=== PATIENT | female | born 1985 | race Caucasian/White ===

== ENCOUNTER 2017-06-11 05:11 | Day surgery (SDC) | payer BC ==
--- NOTE | 2017-06-10 08:30 | History and Physical Report ---
HISTORY OF PRESENT ILLNESS: This is a 31-year-old female who presents to loop electrosurgical excision procedure (LEEP) biopsy. The patient was cervical dysphagia and the patient underwent colposcopy, which revealed high-grade squamous epithelial lesion at the 12 o'clock position. PAST MEDICAL HISTORY: Noncontributory. PAST SURGICAL HISTORY: Noncontributory. ALLERGIES: The patient has no known drug allergies. OBSTETRICAL HISTORY: The patient is nulligravida. GYNECOLOGICAL HISTORY: As above. PHYSICAL EXAMINATION: VITAL SIGNS: On presentation, vital signs noted to be stable. CARDIOVASCULAR: Regular rate and rhythm. LUNGS: Clear to auscultation. ABDOMEN: Soft. PELVIC: Normal external genitalia with no gross lesion on the cervix. ASSESSMENT: History of cervical dysplasia. The patient explained the Loop electrosurgical excision procedure. Risks and benefits of the procedure including not limited to, bleeding, infection, anesthesia were given. The patient the fact that if there is positive margin, there is a possibility of Re- LEEP and / or other procedure as necessary in addition to that the possibility of future incompetent cervix was discussed with the patient. The patient is fully aware, understands and agrees. Tommy Ordonez M.D. DR: ANNA JOB#: [id number] CC: YOVANY
[~2017-06-11] VITALS: Ht 175.3 cm; Wt 56.2 kg
[2017-06-11] VITALS (10 sets, daily range): BP systolic 102–114; BP diastolic 56–75
[~2017-06-11 05:11] MED LIST: NKM
[2017-06-11] MEDS ORDERED: Silver Nitrate Stick TOPIC ONE (06:12)
[2017-06-11] MEDS ORDERED: Lidocaine 1% Plain 30 ml INJ ONE (06:12)
[2017-06-11] MEDS ORDERED: ceFAZolin 2gm/50ml Premix 50 ML IV ONE (06:15)
[2017-06-11] MEDS ORDERED: Ferric Subsulfate (Monsel's Soln) 30ml TOPIC ONE (06:15)
[2017-06-11] MEDS ORDERED: Lugol's (Strong Iodine) 30ml btl TOPIC ONE (06:15)
[2017-06-11 06:38] LABS: BASOPHILS % (AUTO) 1.8 % (0.0-2.0); EOSINOPHILS % (AUTO) 1.3 % (0.0-3.0); HEMATOCRIT 42.1 % (37.0-47.0); HEMOGLOBIN 14.2 G/DL (12.0-16.0); LYMPHOCYTES % (AUTO) 33.4 % (20.0-45.0); MEAN CORPUSCULAR VOLUME 92 FL (80-99); MONOCYTES % (AUTO) 13.3 % (1.0-10.0); NEUTROPHILS % (AUTO) 50.3 % (45.0-75.0); PLATELET COUNT 208 K/UL (150-450); RED BLOOD COUNT 4.58 M/UL (4.20-5.40); RED CELL DISTRIBUTION WIDTH 13.7 % (11.6-14.8); WHITE BLOOD COUNT 3.6 K/UL (4.8-10.8)
--- NOTE | 2017-06-11 06:48 | Pre-Procedure Note/Attestation ---
Pre-Procedure Note/Attestation Complete Prior to Procedure Planned Procedure: not applicable Procedure Narrative: Leep biopsy Indications for Procedure Pre-Operative Diagnosis: cervical dysplasia Attestation I attest that I discussed the nature of the procedure; its benefits; risks and complications; and alternatives (and the risks and benefits of such alternatives ), prior to the procedure, with the patient (or the patient's legal goodwill representative). I attest that, if there was a reasonable possibility of needing a blood transfusion, the patient (or the patient's legal goodwill representative) was given the [facility] standardized written summary, pursuant to the [employer] Blood Safety Act ([place] Health and Safety Code # 1645, as amended). I attest that I re-evaluated the patient just prior to the surgery and that there has been no change in the patient's H&P, except as documented below:none HARJINDER COREY Jun 11, 2017 06:48
--- NOTE | 2017-06-11 06:49 | Brief Operative Note ---
Immediate Post Operative Note Operative Note Pre-op Diagnosis: cervical dysplasia, genital wart Procedure: LEEP Biopsy, wart removal Post-op Diagnosis: same Post-op Diagnosis: same as pre-op Surgeon: juan Anesthesia: general Specimen: yes Complications: none Condition: stable Fluids: LR Estimated Blood Loss: minimal Drains: none Implant(s) used?: No HARJINDER COREY Jun 11, 2017 06:49
[2017-06-11] MEDS ORDERED: Metoclopramide 10mg/2ml Inj ONE (07:00)
[2017-06-11] MEDS ORDERED: DiphenhydrAMINE 50mg/ml Inj IVP PRN (07:00)
[2017-06-11] MEDS ORDERED: NS Irrig 1000ml ONE (07:00)
[2017-06-11] MEDS ORDERED: Morphine Sulfate 2mg/ml Inj IVP PRN (07:00)
[2017-06-11] MEDS ORDERED: Midazolam 2mg/2ml Inj ONE (07:00)
[2017-06-11] MEDS ORDERED: Propofol 200mg/20ml IV ONE (07:00)
[2017-06-11] MEDS ORDERED: Tylenol #3 tab (300mg/30mg) ORAL PRN (07:00)
[2017-06-11] MEDS ORDERED: Sterile Water Irrig 1000ml IRRIG ONE (07:00)
[2017-06-11] MEDS ORDERED: fentaNYL 100 mcg/2 mL IV ONE (07:00)
--- NOTE | 2017-06-11 07:23 | Anethesia Preoperative Eval ---
Anesthesia Pre-op PMH/ROS General Date of Evaluation: Jun 11, 2017 Time of Evaluation: 07:00 Anesthesiologist: kendra ASA Score: ASA 1 Mallampati Score Class I : Soft palate, uvula, fauces, pillars visible Class II: Soft palate, uvula, fauces visible Class III: Soft palate, base of uvula visible Class IV: Only hard plate visible Mallampati Classification: Class II Surgeon: juan Diagnosis: cervical dysplasia Surgical Procedure: LEEP Anesthesia History: none Family History: no anesthesia problems Allergies: Coded Allergies: AMOXICILLIN (Verified Allergy, Intermediate, 06/10/17) SKIN RASH Medications: see eMAR Past Medical History Cardiovascular: Denies: HTN, CAD, MA, valve dz, arrhythmia, other Pulmonary: Denies: asthma, COPD, EMEKA, other Gastrointestinal/Genitourinary: Denies: GERD, CRI, ESRD, other Neurologic/Psychiatric: Denies: dementia, CVA, depression/anxiety, TIA, other Endocrine: Denies: DM, hypothyroidism, steroids, other HEENT: Denies: cataract (L), cataract (R), glaucoma, GULKANA (L), GULKANA (R), other Hematology/Immune: Denies: anemia, DVT, bleeding disorder, other Musculoskeletal/Integumentary: Denies: OA, RA, DJD, DDD, edema, other Other: other - cervical dysplasia PSxH Narrative: dental work Anesthesia Pre-op Phys. Exam Physician Exam Last Vital Signs Date Time Temp Pulse Resp B/P (MAP) Pulse Ox O2 Delivery O2 Flow Rate FiO2 06/11/17 05:50 97.9 69 20 114/75 100 Room Air Constitutional: NAD Neurologic: CN 2-12 intact Cardiovascular: RRR Respiratory: CTA Gastrointestinal: S/NT/ND Airway Exam Mallampati Classification 3 Mallampati Score: Class II MO: full TMD: 3fb ROM: full Dentures: no upper, no lower Anesthesia Pre-op A/P Labs Hematology Test 06/11/17 06:15 White Blood Count 3.6 K/UL (4.8-10.8) L Red Blood Count 4.58 M/UL (4.20-5.40) Hemoglobin 14.2 G/DL (12.0-16.0) Hematocrit 42.1 % (37.0-47.0) Mean Corpuscular Volume 92 FL (80-99) Mean Corpuscular Hemoglobin 31.0 PG (27.0-31.0) Mean Corpuscular Hemoglobin Concent 33.7 G/DL (32.0-36.0) Red Cell Distribution Width 13.7 % (11.6-14.8) Platelet Count 208 K/UL (150-450) Mean Platelet Volume 6.9 FL (6.5-10.1) Neutrophils (%) (Auto) 50.3 % (45.0-75.0) Lymphocytes (%) (Auto) 33.4 % (20.0-45.0) Monocytes (%) (Auto) 13.3 % (1.0-10.0) H Eosinophils (%) (Auto) 1.3 % (0.0-3.0) Basophils (%) (Auto) 1.8 % (0.0-2.0) Urine Test Test 06/11/17 05:30 Urine HCG, Qualitative Negative Studies Pre-op Studies: EKG - sr Risk Assessment & Plan Plan: general lma Status Change Before Surgery: No Pre-Antibiotics Drug: ancef Given Within 1 Hr of Incision: Yes Time Given: 07:00 NAUN DAMON CRNA Jun 11, 2017 07:23
[2017-06-11] MEDS ORDERED: fentaNYL 100 mcg/2 mL IV PRN (07:30)
--- NOTE | 2017-06-11 07:52 | Immediate Post-Op Evaluation ---
Immediate Post-Op Evalulation Immediate Post-Op Evalulation Procedure: LEEP and wart removal Date of Evaluation: Jun 11, 2017 Time of Evaluation: 07:51 IV Fluids: 600 Blood Pressure Systolic: 112 Blood Pressure Diastolic: 60 Pulse Rate: 59 Respiratory Rate: 14 O2 Sat by Pulse Oximetry: 100 Nausea: No Vomiting: No Complications none Patient Status: awake, reacts, patent Hydration Status: adequate Drug: ancef Given Within 1 Hr of Incision: Yes Time Given: 07:00 NAUN DAMON CRNA Jun 11, 2017 07:52
--- NOTE | 2017-06-11 19:15 | Operative Note - Dictated ---
DATE OF OPERATION: 06/11/2017 PREOPERATIVE DIAGNOSES: History of cervical dysplasia, history of genital warts. POSTOPERATIVE DIAGNOSES: History of cervical dysplasia, history of genital warts. PROCEDURE: Loop electrosurgical excision procedure (LEEP) biopsy, genital warts removal. SURGEON: Tommy Ordonez M.D. ANESTHESIOLOGIST: ROSA Bear ANESTHESIA: General. ESTIMATED BLOOD LOSS: Less than 10 mL. INDICATION: The patient was spoken to at length about the procedure and the risks and benefits of the surgery including not limited to, bleeding, infection, anesthesia as well as removal of genital warts. We explained the possibility of hematoma, bleeding, and future scarring. The patient agreed and understands about the risks. DESCRIPTION OF PROCEDURE: The patient was subsequently taken to the operating room, general anesthesia was found to be adequate. She was then prepped and draped in the usual sterile fashion, placed in a dorsal lithotomy position. At this time, a flat genital wart was noted along the labia majora, which was infiltrated on the base with 2% lidocaine approximately 10 mL. This time using a scalpel, an elliptical incision was made where the wart lesion was removed. At this time, using serial 2-0 Vicryl suture in interrupted fashion, the area was reapproximated. Excellent hemostasis was noted. At this time, an insulated speculum was placed into the vagina where the cervix was fully visualized. Lugol solution was placed on the cervix with decreased uptake noted around the cervical canal. Using a loop electrosurgical excision, a LEEP biopsy was taken, which was tied at the 12 o'clock position followed by an Endoloop. This was followed by obtaining an endocervical curetting by Jassi yepez. At this time, the base of the area was cauterized. There was no active bleeding. The patient tolerated the procedure well. Sponge, lap, and needle count correct x3. The patient was sent to the recovery room in stable condition. Tommy Ordonez M.D. DR: SERENITY JOB#: [id number] CC: YOVANY
[2017-06-20 10:46] VITALS: BP 110/72
--- NOTE | 2017-06-20 10:46 | 48 Hour Post Anesthesia Eval ---
Post Anesthesia Evaluation Procedure: LEEP and wart removal Date of Evaluation: Jun 20, 2017 Time of Evaluation: 10:46 Blood Pressure Systolic: 110 0: 72 Pulse Rate: 51 Respiratory Rate: 14 O2 Sat by Pulse Oximetry: 99 Airway: patent Nausea: No Vomiting: No Hydration Status: adequate Cardiopulmonary Status: stable Mental Status/LOC: patient returned to baseline Post-Anesthesia Complications: none Follow-up care needed: N/A NAUN DAMON CRNA Jun 20, 2017 10:46
== END 2017-06-11 09:10 | disposition home or self-care (01) ==
LOC: SUR 05:11
DX: A63.0 Anogenital (venereal) warts (principal); N87.9 Dysplasia of cervix uteri, unspecified; Z88.8 Allergy status to other drugs, medicaments and biological substances
CPT/HCPCS: 36415; 57460; 81025; 85025; 86850; 86900; 86901; J0690; J2001; J2250; J2405; J2704; J2765; J3010; 94003; 94150